=== PATIENT | female | born 1940 | race Caucasian/White ===

== ENCOUNTER 2022-05-19 22:33 | Emergency (ER) | payer MEDICARE, OTHER, SELFPAY ==
[2022-05-19 22:35] VITALS: BP 154/71; PULSE 118; RESP 16; TEMP 37.6; O2SAT 98; BMI 31.8
[2022-05-19] MEDS: 0.9% Normal Saline 1,000 ML 999 ML IV (23:09)
[2022-05-19 23:10] LABS: Absolute Lymphocyte Count 0.84 X10^3/uL (0.83-4.51); Absolute Neutrophil Count 2.1 X10^3/uL (2.0-7.7); Basophil# 0.01 X10^3/uL; Basophil% 0.3 % (0-1); Eosinophil# 0.01 X10^3/uL; Eosinophils% 0.3 % (0-5); Hematocrit 41.6 % (37-47); Hemoglobin 14.7 g/dL (12.0-15.0); Lymphocyte # 0.84 X10^3/ul (0.83-4.51); Lymphocyte % 26.3 % (19-41); Mean Corp Hgb Conc 35.3 g/dL (32-36); Mean Corpuscular Hgb 30.1 pg (27.0-32.0); Mean Corpuscular Volume 85.1 fL (81-99); Mean Platelet Vol. 10.8 fl (6.2-12.0); Monocyte# 0.27 X10^3/uL; Monocyte% 8.5 % (0-10); NRBC Flagged by Analyzer 0 % (0-5); Neutrophil # 2.05 X10^3/uL (2.7-7.7); Neutrophil % 64.3 % (47-70); Platelet Count 122 K/mm3 (150-450); RBC Distribution Width CV 11.9 % (11.6-14.6); RBC Distribution Width SD 36.4 fl (35.1-43.9); Red Blood Count 4.89 M/mm3 (4.2-5.4); White Blood Count 3.2 K/mm3 (4.4-11.0)
[2022-05-19] MEDS: Ondansetron 4 MG/2 ML Vial IV (23:10)
[2022-05-19] MEDS: dexAMETHasone 10 MG/ML Vial IV (23:10)
[2022-05-19] MEDS: Acetaminophen 325 MG Tablet 650 MG PO (23:10)
[2022-05-19 23:11] LABS: POSITIVE COUNT NO; POSITIVE DIFFERENTIAL NO; POSITIVE MORPHOLOGY NO
[2022-05-19 23:15] VITALS: TEMP 37.3
[2022-05-19 23:27] LABS: Anion Gap 9 (5-15); BUN 9 mg/dL (7-18); BUN/Creat Ratio 10.4 RATIO (10-20); Calcium,Total 8.8 mg/dL (8.5-10.1); Chloride 100 mmol/L (98-107); Creatinine, Serum 0.87 mg/dL (0.55-1.02); EST Glomerular Filtration Rate 67 mL/min (>60); Est Glom Filt Rate - Afr Amer 81 mL/min (>60); Estimated Creatinine Clearance 42.66 ml/min; Glucose 344 mg/dL (74-106); Potassium 3.3 mmol/L (3.5-5.1); Sodium Level 135 mmol/L (136-145)
--- NOTE | 2022-05-20 00:16 | EDS_ITS ---
HPI History of Present Illness Chief Complaint: General Illness Narrative Narrative: Patient is an 82-year-old female with no significant past medical history. She states she takes no medications and her only previous surgery are . She states for the past 2 to 3 days she has had generalized fatigue and headache with nausea and lack of appetite. She reports her was recently sick with cough and congestion but she denies other symptoms. She states as her symptoms do not seem to be resolving with time she is concerned for infection and therefore comes in for evaluation. PFSH PFSH Home Medications nirmatrelvir 300 mg (150 mg x2)-ritonavir 100 mg tablet,dose pack(EUA) (Paxlovid) See Rx Instructions PO .COMPLEX #30 tabs 05/20/22 [Rx Last Taken Unknown] ondansetron 4 mg disintegrating tablet 4 mg PO TID PRN nausea and vomiting #21 tabs 05/20/22 [Rx Last Taken Unknown] Allergy/AdvReac Type Severity Reaction Status Date / Time Penicillins AdvReac Anaphylaxis Verified 05/19/22 22:35 Surgical History History of Social History Smoking Status: Never smoker ROS [facility] ED Constitutional Constitutional ED: Denies chills or fever(s) ENT ENT ED: Denies sore throat Cardiovascular Cardiovascular: Denies chest pain Respiratory/Chest Respiratory/Chest: Denies cough or dyspnea Gastrointestinal Gastrointestinal: Reports nausea; Denies abdominal pain, diarrhea or vomiting Genitourinary Genitourinary ED: Denies dysuria Musculoskeletal Musculoskeletal: Reports myalgias Integumentary Denies rash Neurologic Neurologic: Reports headache(s) and weakness Hematologic/Lymphatic Hematologic/Lymphatic: Denies easy bleeding or easy bruising EXAM Physical Exam Const Vital Signs: 05/19/22 22:35 05/19/22 23:15 Temperature 99.6 F H 99.2 F H Temperature Source Temporal Oral Pulse Rate 118 H Respiratory Rate 16 Blood Pressure 154/71 H Blood Pressure Mean 98 Pulse Ox 98 Oxygen Delivery Method Room Air Positive well nourished and well developed General Appearance ED: well developed HEENT Reports dry mucous membranes HEENT Narrative: Mucous membranes are dry and tacky. No tongue or lip swelling no oral lesions no airway edema or compromise Mouth ED: Yes dry mucous membranes Mouth: dry mucous membranes Eyes PERRL and EOMs intact bilaterally Neck supple Neck Narrative: Positive anterior cervical lymphadenopathy Resp normal respiratory effort and clear to auscultation bilaterally Cardio regular rate and regular rhythm Rate: other Other Details: Radial pulses are +2-4 bilaterally are equal and symmetric GI normal to inspection, nondistended, normoactive bowel sounds, non-tender, non- distended and no masses GI Narrative: Soft nontender nondistended with normoactive bowel sounds no voluntary guarding or rigidity. No pulsatile mass or fluid wave. No increased tympany noted Auscultation: normoactive bowel sounds Palpation: soft Extremity normal to inspection Neuro oriented x3 and CN's II-XII intact bilaterally Sensorium / Orientation: alert Psych mental status grossly normal Skin no rashes or lesions noted Skin Narrative: Skin turgor is increased MDM MDM MDM Narrative Medical decision making narrative: Patient presented to the ER mildly tachycardic with low-grade fever. Otherwise her neuro exam is normal she has no change in voice or difficulty with secretions or no pain in the anterior neck to suggest epiglottitis. Her abdomen is not distended there is no increased tympany and this goes against bowel obstruction. Patient's vitals and exam are consistent with viral illness. Basic labs were obtained which show hyperglycemia but no derangement to her bic arb or anion gap going against DKA. She also has no significant electrolyte derangement. Or changes concerning for acute kidney injury. Her viral swab was positive for COVID which fits her constellation of symptoms. However at this time she is not hypoxic requiring submental oxygen or having respiratory distress. She also does not have severe dehydration leading to electrolyte derangement or acute kidney injury. Therefore she can be given symptom medication and otherwise be discharged home. Lab Data Attestation: I reviewed the patient's lab results. Labs: Laboratory Results - last 24 hr 05/19/22 05/19/22 23:05 23:05 WBC 3.2 L RBC 4.89 Hgb 14.7 Hct 41.6 MCV 85.1 MCH 30.1 MCHC 35.3 RDW Std Deviation 36.4 RDW Coeff of Tesha 11.9 Plt Count 122 L MPV 10.8 Immature Gran % (Auto) 0.300 Neut % (Auto) 64.3 Lymph % (Auto) 26.3 Cassia % (Auto) 8.5 Eos % (Auto) 0.3 Baso % (Auto) 0.3 Absolute Neuts (auto) 2.1 Absolute Lymphs (auto) 0.84 Nucleated RBC % 0 Sodium 135 L Potassium 3.3 L Chloride 100 Carbon Dioxide 26.0 Anion Gap 9 BUN 9 Creatinine 0.87 Estim Creat Clear Calc 42.66 Est GFR (MDRD) Af Amer 81 Est GFR (MDRD) Non-Af 67 BUN/Creatinine Ratio 10.4 Glucose 344 H Calcium 8.8 Discharge Plan Triage Chief Complaint: General Illness ED Provider: Jean Antoine Dx/Rx/DC Orders Clinical Impression: COVID-19, Dehydration, Nausea Instructions: Coronavirus Disease 2019 (COVID-19): Caring for Yourself or Others, Dehydration Prescriptions: New ondansetron 4 mg tablet,disintegrating 4 mg PO TID PRN (Reason: nausea and vomiting) Qty: 21 0RF Paxlovid (EUA) 300 mg (150 mg x 2)-100 mg tablets,dose pack See Rx Instructions .ROUTE .COMPLEX Qty: 30 0RF Rx Instructions: take TWO 150 mg tablets of nirmatrelvir with ONE 100 mg tablet of ritonavir twice daily for 5 days Primary Care Provider: Care Physician,No Primary Referrals: Stephanie Daniels DO [Med Staff - Mental Health Specialist] - Care Physician,No Primary [Primary Care Provider] - Activity Restrictions/Additional Instructions: Your symptoms are from COVID. The symptoms can last anywhere from 3 days to 2 to 3 weeks. Please use the Zofran as directed to control any nausea in the Paxlovid helped the COVID infection resolved faster. Please keep yourself well- hydrated and you will need to force herself to eat because the COVID infection reduces her appetite. If you have any further concerns please return to the ER for repeat evaluation Disposition Disposition: Home, Self Care
[2022-05-20 00:37] VITALS: PULSE 100; RESP 18; O2SAT 97
== END 2022-05-20 00:38 | disposition home or self-care (01) ==
PROVIDERS: Emergency Provider Emergency Medicine; Visit Provider Emergency Medicine
DX: U07.1 COVID-19 (principal); E86.0 Dehydration; R11.0 Nausea
CPT/HCPCS: 80048; 85025; 87428; 96361; 96374; 96375; 99283; J7030; J2405